=== PATIENT | female | born 1985 | race Two or more races ===

== ENCOUNTER 2018-07-10 21:56 | Emergency (ER) | payer OTHER ==
--- NOTE | 2018-07-10 22:22 | ED ---
Headache - HPI Summary HPI Summary: A 33 y/o F presents to ED with c/o R-sided STILL onset 1100. Associated sx: nausea , photophobia, sound sensitivity. Aggravating factors: lights and some sounds. Pt states she has had a STILL similar to this "once in a [place]." She took IBP at 1600 to no relief. - History Of Current Complaint Chief Complaint: EDHeadache Stated Complaint: HEADACHE Time Seen by Provider: 07/10/18 22:20 Hx Obtained From: Patient Onset/Duration: Started hours ago, Still Present Initially Headache Was: Moderate Currently Pain Is: Current Pain Scale(0-10)= - 8, Moderate Timing: Constant Location of Headache: Other: - R-sided Aggravating Factor: Bright Lights, Other - sounds Associated Signs And Symptoms: Nausea, Other (Noted In Comments) - pos: photophobia, sound sensitivity - Allergies/Home Medications Home Medications: Home Medications NK [No Home Medications Reported] 07/10/18 [History Confirmed 07/10/18] PMH/Surg Hx/FS Hx/Imm Hx Previously Healthy: Yes Respiratory History: Denies: Hx Chronic Obstructive Pulmonary Disease (COPD) Opthamlomology History: Denies: Hx Legally Blind Infectious Disease History: No Infectious Disease History: Denies: Traveled Outside the [place] in Last 30 Days - Family History Known Family History: Positive: Cardiac Disease - grandfather, Hypertension Negative: Diabetes - Social History Occupation: Employed Full-time Lives: With Family Alcohol Use: None Hx Substance Use: No Hx Tobacco Use: No Smoking Status (MU): Never Smoked Tobacco Review of Systems Positive: Photophobia Positive: Other - pos: sound sensitivity Positive: Nausea Positive: Headache All Other Systems Reviewed And Are Negative: Yes Physical Exam - Summary Physical Exam Summary: VITAL SIGNS: Reviewed. GENERAL: Patient is a well-developed and nourished FEMALE who is lying comfortable in the stretcher. Patient is not in any acute respiratory distress. HEAD AND FACE: No signs of trauma. No ecchymosis, hematomas or skull depressions. No sinus tenderness. EYES: PERRLA, EOMI x 2, No injected conjunctiva, no nystagmus. Photophobia. EARS: Hearing grossly intact. Ear canals and tympanic membranes are within normal limits. MOUTH: Oropharynx within normal limits. NECK: Supple, trachea is midline, no adenopathy, no JVD, no carotid bruit, no c- spine tenderness, neck with full ROM. CHEST: Symmetric, no tenderness at palpation LUNGS: Clear to auscultation bilaterally. No wheezing or crackles. CVS: Regular rate and rhythm, S1 and S2 present, no murmurs or gallops appreciated. ABDOMEN: Soft, non-tender. No signs of distention. No rebound no guarding, and no masses palpated. Bowel sounds are normal. EXTREMITIES: FROM in all major joints, no edema, no cyanosis or clubbing. NEURO: Alert and oriented x 3. No acute neurological deficits. Speech is normal and follows commands. SKIN: Dry and warm Triage Information Reviewed: Yes Vital Signs On Initial Exam: Initial Vitals Temp Pulse Resp BP Pulse Ox 97.3 F 66 20 116/78 99 07/10/18 21:58 07/10/18 21:58 07/10/18 21:58 07/10/18 21:58 07/10/18 21:58 Vital Signs Reviewed: Yes Diagnostics - Vital Signs Vital Signs Temp Pulse Resp BP Pulse Ox 07/10/18 21:58 97.3 F 66 20 116/78 99 - Laboratory Lab Statement: Any lab studies that have been ordered have been reviewed, and results considered in the medical decision making process. Headache Course/Dx - Course Course Of Treatment: A 33 y/o F presents with STILL and photophobia since this morning. She took IBP to no relief. - Diagnoses Provider Diagnoses: Headache Discharge - Sign-Out/Discharge Documenting (check all that apply): Patient Departure - DC - Discharge Plan Condition: Stable Disposition: HOME Patient Education Materials: Acute Headache (ED) Referrals: No Primary Care Phys,NOPCP [Primary Care Provider] - [facility] [Outside] Additional Instructions: RETURN TO THE EMERGENCY DEPARTMENT FOR CHANGING OR WORSENING SYMPTOMS. - Attestation Statements Document Initiated by Scribe: Yes Documenting Scribe: Mary Jo Moore Provider For Whom Scribe is Documenting (Include Credential): Dr. Allie Cohen MD Scribe Attestation: Mary Jo Banegas scribed for Dr. Allie Cohen MD on 07/11/18 at 0120.
[2018-07-10] MEDS ORDERED: Ketorolac INJ* 30 MG/ML 1 ML VIAL IV PUSH ONE (22:26)
[2018-07-10] MEDS ORDERED: Metoclopramide IV* 5 MG/ML 2 ML VIAL IV SLOW PU ONE (22:27)
[2018-07-10] MEDS ORDERED: diPHENhydraMINE IV* 50 MG/ML 1 ml VIAL (BENADRYL) SLOW PUSH ONE (22:27)
[2018-07-10] MEDS ORDERED: NS 0.9% 1000 ML* 1,000 ML IV ONE (22:28)
[2018-07-11 02:19] VITALS: BP 122/71
== END 2018-07-11 01:30 | disposition home or self-care (01) ==
LOC: ED 21:56
DX: R51 Headache (principal)
CPT/HCPCS: 96374; 96375; 99282; J1200; J1885; J2765